=== PATIENT | female | born 1955 | race Caucasian/White ===

== ENCOUNTER → 2017-12-10 | Outpatient (CLI) | payer MEDICARE, OTHER ==
[~2017-12-10] MED LIST: ALPRAZOLAM ER1 MG PO; AMITRIPTYLINE PO; COZAAR 25 MG TA25 M1 PO; CYMBALTA30 MG PO; DEXILANT60 MG PO; ESTRACE1 MG; GLUCOPHAGE XR500 MG PO; MELOXICAM15 MG PO; NEXIUM40 MG PO; PHENERGAN 25 MG25 M1 PO; PROMETHAZINE; SINUS PO; TRAMADOL; TRAMADOL 50 MG50 MG PO; ULTRAM 50MG TAB50 MG PO; ZANAFLEX4 MG PO; ZOCOR PO; ZOFRAN4 MG PO
[2017-12-10 15:17] LABS: ABSOLUTE EOSINOPHILS 0.2 thou/uL (0.0-0.7); ABSOLUTE LYMPHOCYTES 1.8 thou/uL (0.8-5.3); ABSOLUTE MONOCYTES 0.3 thou/uL (0.0-1.2); BASOPHILS 0.9 %; EOSINOPHILS 2.9 %; HEMATOCRIT 39.6 % (37.0-47.0); HEMOGLOBIN 13.4 gm/dL (12.0-15.0); LYMPHOCYTES 34.2 %; MCH 29.3 pg (26.0-34.0); MCHC 33.8 g/dL (28.0-37.0); MCV 86.6 fL (80.0-100.0); MONOCYTES 6.4 %; MPV 7.4 fl. (7.2-11.1); NUCLEATED RBCS 0 /100WBC; PLATELET COUNT* 194 thou/uL (150-400); POLYS 55.6 %; RBC 4.57 mil/uL (4.20-5.00); RDW-CV 13.4 % (10.5-14.5); WBC 5.4 thou/uL (4.0-11.0)
[2017-12-10 15:34] LABS: ALBUMIN 3.7 g/dL (3.4-5.0); ALKALINE PHOSPHATASE 85 U/L (46-116); ANION GAP 6 mmol/L (7-16); BUN 14 mg/dL (7-18); CALCIUM 8.6 mg/dL (8.5-10.1); CHLORIDE 103 mmol/L (98-107); CO2 32 mmol/L (21-32); CREATININE 0.9 mg/dL (0.6-1.3); GLUCOSE 112 mg/dL (70-99); POTASSIUM 3.8 mmol/L (3.5-5.1); SGOT 20 U/L (15-37); SGPT 26 U/L (30-65); SODIUM 141 mmol/L (136-145); TOTAL BILIRUBIN 0.2 mg/dL (<0.1-1.0); TOTAL PROTEIN 7.3 g/dL (6.4-8.2); TROPONIN-I LEVEL <0.06 ng/mL (<0.06)
== END ==
LOC: M.LAB 14:53
PROVIDERS: Family Medicine
DX: R07.9 Chest pain, unspecified (principal); E11.9 Type 2 diabetes mellitus without complications

== ENCOUNTER → 2018-04-01 | Outpatient (CLI) | payer MEDICARE, OTHER | LOC: M.CT 03-29 10:31 | DX: G43.909 Migraine, unspecified, not intractable, without status migrainosus (principal); M19.90 Unspecified osteoarthritis, unspecified site; E78.00 Pure hypercholesterolemia, unspecified; F17.200 Nicotine dependence, unspecified, uncomplicated; Z90.89 Acquired absence of other organs ==

== ENCOUNTER → 2018-04-18 | Outpatient (CLI) | payer MEDICARE, OTHER | LOC: M.MRI 07:01 | DX: R42 Dizziness and giddiness (principal); E78.00 Pure hypercholesterolemia, unspecified; M19.90 Unspecified osteoarthritis, unspecified site; G43.909 Migraine, unspecified, not intractable, without status migrainosus ==

== ENCOUNTER → 2018-09-21 | Outpatient (CLI) | payer MEDICARE, OTHER | LOC: M.RAD 09:13 | DX: Z12.31 Encounter for screening mammogram for malignant neoplasm of breast (principal) ==